=== PATIENT | female | born 1960 | race Caucasian/White ===

== ENCOUNTER 2021-11-10 19:09 | Emergency (ER) | payer BC, SELFPAY ==
--- NOTE | ~2021-11-10 | CT_ITS ---
EXAMINATION: CT abdomen pelvis w con DATE: 11/10/2021 20:31 INDICATION: Right lower quadrant abdominal pain. TECHNIQUE: Computed tomography (CT) of the abdomen and pelvis was performed with 100 mL Omnipaque 350 intravenous contrast. Automated exposure control and iterative reconstruction technique were employe d. The dose-length product was 179.16 mGy-cm. COMPARISON: None. FINDINGS: The visualized portions of the lung bases are clear without pneumonia or pleural effusion. There are bilateral posterior diaphragmatic hernias containing fat. The heart size is normal. No joey cardial effusion. There is a small sliding hiatal hernia. The liver and gallbladder are normal. Calci fications in the spleen are consistent with old granulomatous disease. The pancreas and adrenal gland s are normal. There are cysts in the kidneys measuring up to 6 mm on the right. The appendix is fluid -filled and dilated to 12 mm with adjacent fat stranding, consistent with appendicitis. There is trac e pelvic ascites. There are no pathologically enlarged lymph nodes. There is mild lumbar spondylosis. IMPRESSION: 1. Acute appendicitis. I called this result to Dr. Garduno. Reviewed, dictated and finalized at location A.
[2021-11-10 19:18] VITALS: BP 140/78; PULSE 89; RESP 18; TEMP 36.9; O2SAT 99
--- NOTE | 2021-11-10 19:21 | ECG_ITS ---
Measurements Intervals [place] Rate: 83 P: 74 NE: 143 QRS: 67 QRSD: 100 T: 69 QT: 364 QTc: 430 Interpretive Statements SINUS RHYTHM WITH SINUS ARRHYTHMIA POSSIBLE LEFT ATRIAL ENLARGEMENT [-0.1mV P-WAVE IN V1/V2] INCOMPLETE RIGHT BUNDLE BRANCH BLOCK [90+ ms QRS DURATION, TERMINAL R IN V1/V2, 40+ ms S IN I/aVL/V4/V5/V6] BASELINE ARTIFACT MODERATE T-WAVE ABNORMALITY, CONSIDER ANTERIOR ISCHEMIA [-0.1+ mV T-WAVE IN V3/V4] BORDERLINE ECG NO PREVIOUS ECG AVAILABLE FOR COMPARISON Electronically Signed On 11-11-2021 16:55:20 CDT by Brandon Lord M.D.
--- NOTE | 2021-11-10 19:49 | ED.ABDPAIN ---
HPI - Abdominal Pain General Chief Complaint: Abdominal Pain Stated Complaint: abd pain Time Seen by Provider: 11/10/21 19:14 Source: patient and family Mode of arrival: ambulatory Limitations: no limitations History of Present Illness HPI narrative: this is a 61-year-old female that has a history of hypothyroidism and irritable bowel syndrome presents with a one-week history of abdominal pain has gotten worse over the last 24hours with some nausea pain she rates at about an 8/10 it is mid abdominal radiating into her right lower quadrant is no diarrhea or constipation no fever chills no chest pain no shortness of breath. There is no flank pain no dysuria no hematuria. MD elicited complaint: abdominal pain Pertinent past history: other ( history of IBS) Onset (ago): week(s) Pain Consistency: intermittent Location: RLQ Severity: moderate Pain scale (0-10): 8 Quality: aching Radiation: RLQ Exacerbating factors: nothing Relieving factors: nothing Related Data Home Medications Medication Instructions Recorded Confirmed levothyroxine 50 mcg PO DIRECTED 11/10/21 11/10/21 Allergies Allergy/AdvReac Type Severity Reaction Status Date / Time Penicillins Allergy Unknown Verified 11/10/21 19:27 Sulfa (Sulfonamide Allergy Unknown Verified 11/10/21 19:27 Antibiotics) Review of Systems Review of Systems: All systems reviewed & are unremarkable except as noted in HPI and below PMFSH Past Medical History Medical History Hypothyroidism (acquired) IBS (irritable bowel syndrome) Exam Const: General: no acute distress and alert Orientation/consciousness: patient oriented x3 HENMT: Head: normal to inspection Eyes: Conjunctivae: conjunctivae normal Pupils: Equal, round and reactive pupils present Neck: Neck: normal visual inspection, no lymphadenopathy and no meningeal signs Chest: Chest palpation & inspection: normal inspection of the chest Resp: Effort & Inspection: normal respiratory effort Cardio: Rate: regular rate Rhythm: regular rhythm GI: GI Palp: Yes Soft to palpation Other: tender right lower quadrant : General: Yes no CVA tenderness Back/Spine/Pelvis: Back: no CVA tenderness Skin: General skin exam: normal color Neuro: General: patient oriented x3 Extrem: General: normal to inspection and no pedal edema Psych: Appearance: grossly normal Mental Status: mental status grossly normal Affect: normal affect Attitude: cooperative Course Course Emergency Course: patient with abdominal pain, declined morphine for pain although she rates her pain at 8/10, patient was given Zofran IV and IV started, obtained a CT scan of abdomen pelvis with contrast and reviewed along with some lab work that was reviewed with patient. Was called by radiology and the patient CT scan confirms she has acute appendicitis. The patient initially declined 4mg of morphine but is willing to take 2mg IV morphine. Spoke to patient and family about transfer and they would like to be transferred to [facility]. Talk to surgery at [facility] in [place] and surgery advised giving a dose of Cipro and Flagyl IV since the patient has allergies to penicillins.. Surgery accepting is Dr. Dale Critical Care Time Critical Care Time Critical Care Time: No Discharge Plan Discharge Clinical Impression: Acute appendicitis Qualifiers: Acute appendicitis type: unspecified acute appendicitis type Qualified Code(s): K35.80 - Unspecified acute appendicitis Patient Disposition: Acute Care Hospital Prescriptions: No Action levothyroxine 50 mcg tablet 50 mcg PO DIRECTED RF: 0 Follow-up/Referrals: Shruti,Willian Mcrae MD [Primary Care Provider] - Time of Disposition: 21:26
[2021-11-10] MEDS: ONDANSETRON INJ 4 MG/2 ML VIAL IV PUSH (19:50)
[2021-11-10 19:53] LABS: Basophils Absolute Auto 0.03 K/mm3 (0.00-0.10); Basophils Percent Auto 0.2 % (0.0-1.0); Eosinophils Absolute Auto 0.01 K/mm3 (0.02-0.50); Eosinophils Percent Auto 0.1 % (1.0-6.0); Hematocrit 40.6 % (35.0-49.0); Hemoglobin 13.6 g/dL (12.0-15.0); Immature Granulocyte Absolute 0.07 K/mm3 (0.00-0.00); Immature Granulocyte Percent A 0.5 % (0.0-0.0); Lymphocytes Absolute Auto 0.64 K/mm3 (1.10-4.50); Lymphocytes Percent Auto 4.3 % (18.0-42.0); Mean Corpuscular HGB Conc 33.5 g/dL (32.0-36.0); Mean Corpuscular Hemoglobin 32.3 pg (27.0-31.0); Mean Corpuscular Volume 96.4 fL (78.0-102.0); Mean Platelet Volume 10.3 fl (9.2-11.8); Monocytes Absolute Auto 0.85 K/mm3 (0.10-0.90); Monocytes Percent Auto 5.7 % (2.0-11.0); Neutrophils Absolute Auto 13.2 K/mm3 (1.7-7.2); Neutrophils Percent Auto 89.2 % (50.0-70.0); Platelet Count Result 287 K/mm3 (150-420); Red Blood Count 4.21 M/mm3 (4.20-5.40); Red Cell Distribution Width 12.9 % (11.6-14.4); White Blood Count 14.8 K/mm3 (4.8-10.8)
[2021-11-10 20:11] LABS: Alanine Aminotransferase 22 U/L (14-59); Albumin Level 3.8 g/dL (3.4-5.0); Alkaline Phosphatase 60 U/L (46-116); Anion Gap 9 mmol/L (8-16); Aspartate Amino Transferase 12 U/L (15-37); Bilirubin,Total 0.5 mg/dL (0.00-1.00); Blood Urea Nitrogen 9 mg/dL (7-18); Calcium 8.8 mg/dL (8.5-10.1); Carbon Dioxide 27 mmol/L (21-32); Chloride 99 mmol/L (98-108); Estimated Glomerular Filt Rate > 60; Glucose 129 mg/dL (70-99); Lipase 109 U/L (73-393); Osmolality Calculated 280 mOsm/kg (285-295); Potassium 3.9 mmol/L (3.5-5.1); Sodium 135 mmol/L (136-145); Total Protein 7.2 g/dL (6.4-8.2); Troponin I 4.7 ng/L (0.00-60.4)
[2021-11-10 20:14] LABS: Lactic Acid Reflex 0.5 mmol/L (0.4-2.0)
[2021-11-10] MEDS: MORPHINE SULFATE (*CRX) 2 MG/ML INJ IV PUSH ×2 (20:54→22:40)
--- NOTE | 2021-11-10 20:57 | PC.NURSE ---
Pt refused to be transferred to [place] after being informed that she need to be transferred. Pt requested to be transferred to the [facility] in [place], [place].
[2021-11-10 21:00] VITALS: BP 140/78; PULSE 94; RESP 18; O2SAT 98
[2021-11-10 21:02] LABS: Add Urine Microscopic? YES; Appearance Urine Clear (Clear); Bilirubin Urine Negative (Negative); Blood Urine Negative (Negative); Color Urine Light Yellow (Yellow); Glucose Urine UA Negative (Negative); Ketones Urine Trace (Negative); Leukocyte Esterase Ur Negative (Negative); Nitrate Urine Negative (Negative); Protein Urine Negative (Negative); Specific Grav Ur <= 1.005 (1.010-1.020); Urobilinogen Urine 0.2 mg/dL (0.2-1.0)
--- NOTE | 2021-11-10 21:04 | PC.NURSE ---
RN called [facility] transfer line to obtain a bed. Exchange dispatcher, Aliya, stated for the CT to be faxed to the facility and would return a phone call shortly.
[2021-11-10 21:07] LABS: Bacteria Urine None seen /hpf; RBC Urine 0-2 /hpf (0-2); Squamous Epithelial Cell Urine None seen /hpf (Few); WBC Urine 0-3 /hpf (0-3)
[2021-11-10 21:19] LABS: SARS-CoV-2 Ag Negative (Negative)
[2021-11-10 21:30] VITALS: BP 148/71; PULSE 95; RESP 18; O2SAT 97
[2021-11-10] MEDS: CIPROFLOXACIN 400 MG/D5W 200ML 200 ML 200 MG IVPB (21:51)
[2021-11-10] MEDS: metroNIDAZOLE 500 MG/ISO 100ML 500 MG/100 ML BAG 100 MG IVPB (21:57)
[2021-11-10 22:08] VITALS: BP 140/67; PULSE 95; RESP 18; O2SAT 97
[2021-11-10 22:48] VITALS: BP 140/67; PULSE 92; RESP 18; TEMP 36.8; O2SAT 97
== END 2021-11-10 22:54 | disposition short-term general hospital (02) ==
PROVIDERS: Emergency Provider Emergency Medicine; PCP Internal Medicine Infectious Disease
DX: K35.80 Unspecified acute appendicitis (principal); Z20.822 Contact with and (suspected) exposure to COVID-19
CPT/HCPCS: 36415; 74177; 80053; 81001; 83605; 83690; 84484; 85025; 87426; 93005; 96365; 96368; 96375; 96376; 99285; C9803; J0744; J2270; J2405; Q9967